=== PATIENT | male | born 1970 | race Caucasian/White ===

== ENCOUNTER 2018-09-20 08:39 | Emergency (ER) | payer MEDICAID ==
[~2018-09-20 08:39] MED LIST: MIRALAX PO; MULT9LIQ6 PO; RISP1SOL10 PO; [UNRECOGNIZED DRUG - CODE] PO; [UNRECOGNIZED DRUG - CODE] PO
[2018-09-20] MEDS ORDERED: NEOMY SULF/BACITRA/POLYMYXIN B 1 EACH PACKET TP ONE (08:55)
== END 2018-09-20 09:12 | disposition home or self-care (01) ==
LOC: EDH 08:39
DX: S01.21XA Laceration without foreign body of nose, initial encounter (principal); F84.0 Autistic disorder; W22.01XA Walked into wall, initial encounter; Y93.89 Activity, other specified; Y92.098 Other place in other non-institutional residence as the place of occurrence of the external cause; Y99.8 Other external cause status
CPT/HCPCS: 99281

== ENCOUNTER 2019-02-10 09:06 | Emergency (ER) | payer MEDICAID | END 2019-02-10 09:55 | disposition home or self-care (01) | LOC: EDH 09:06 | DX: Z43.1 Encounter for attention to gastrostomy (principal); F84.0 Autistic disorder | CPT/HCPCS: 43762; 74018 ==

== ENCOUNTER 2019-06-15 17:26 | Emergency (ER) | payer MEDICAID | END 2019-06-15 18:49 | disposition home or self-care (01) | LOC: EDH 17:26 | DX: Z04.1 Encounter for examination and observation following transport accident (principal); F84.0 Autistic disorder; V59.88XA Occupant (driver) (passenger) of pick-up truck or van injured in other specified transport accidents, initial encounter; Y93.89 Activity, other specified; Y92.488 Other paved roadways as the place of occurrence of the external cause; Y99.8 Other external cause status | CPT/HCPCS: 99281 ==

== ENCOUNTER 2021-01-19 06:39 | Emergency (ER) | payer MEDICAID ==
[~2021-01-19] VITALS: Ht 167.6 cm; Wt 68.0 kg
[2021-01-19] MEDS ORDERED: MORPHINE 4 MG SYG IV SCH (08:30)
[2021-01-19] MEDS ORDERED: ONDANSETRON 4MG INJ IVP SCH (08:30)
[2021-01-19] MEDS ORDERED: DIATR MEGLU/DIATRIZOATE SODIUM 30 ML BOTTLE ONE (08:50)
== END 2021-01-19 10:05 | disposition home or self-care (01) ==
LOC: EDH 06:39
DX: K94.23 Gastrostomy malfunction (principal); F84.0 Autistic disorder; Z79.899 Other long term (current) drug therapy
CPT/HCPCS: 43762; 74018; 99284; Q9963